=== PATIENT | female | born 1965 | race Caucasian/White ===

== ENCOUNTER 2019-02-25 10:26 | Day surgery (SDC) | payer MEDICAID ==
[~2019-02-25] VITALS: Ht 172.7 cm; Wt 64.5 kg
[2019-02-25 10:48] VITALS: BP 106/67
[2019-02-25] MEDS ORDERED: nitroGLYCERIN 0.4mg SUBLingual tab SL PRN (11:00)
[2019-02-25] MEDS ORDERED: normal saline 1,000 ML IV SCH (11:05)
[2019-02-25] MEDS ORDERED: LORazepam 0.5 MG tablet PO PRN (11:05)
[2019-02-25] MEDS ORDERED: diphenhydrAMINE 25mg capsule PO PRN (11:05)
[2019-02-25] MEDS ORDERED: ALBU18HF2 INH (11:26)
[2019-02-25] MEDS ORDERED: ASPI-611 PO (11:26)
[2019-02-25] MEDS ORDERED: ATRNS (11:26)
[2019-02-25] MEDS ORDERED: BUDE10.2 INH (11:26)
[2019-02-25] MEDS ORDERED: iohexol 350MG/ML 100ml bottle IV ONE (11:57)
[2019-02-25] MEDS ORDERED: midazolam 2 mg/2 ml injection ONE ×2 (11:57→13:00)
[2019-02-25] MEDS ORDERED: fentaNYL/PF 50MCG/1 ML 2ML syringe ONE ×2 (11:57→13:08)
[2019-02-25] MEDS ORDERED: LIDOcaine 1% (10mg/ml)w/preservative injection 20ml MDV ONE (11:57)
[2019-02-25] MEDS ORDERED: iohexol 350 MG/ML 50ML vial IV ONE (11:57)
[2019-02-25] MEDS ORDERED: proCHLORperazine 10 MG/2 ml inj ONE (13:05)
[2019-02-25 13:23] VITALS: BP 116/67
[2019-02-25 13:30] VITALS: BP 114/74
[2019-02-25 13:45] VITALS: BP 133/76
== END 2019-02-25 14:00 | disposition home or self-care (01) ==
LOC: SSTAY O 10:26
PROVIDERS: ATTEND Internal Medicine Cardiovascular Disease
DX: R94.39 Abnormal result of other cardiovascular function study (principal); Z86.19 Personal history of other infectious and parasitic diseases; Z90.710 Acquired absence of both cervix and uterus
CPT/HCPCS: 93451; A6257; J0780; J1644; J2001; J2250; J3010; J7030; Q0163; Q9967; 99152; A4620; C1769

== ENCOUNTER 2019-03-12 10:59 | Day surgery (SDC) | payer MEDICAID ==
[2019-03-09 15:54] LABS: BASOPHILS % (AUTO) 0.5 % (0-1); EOSINOPHILS # (AUTO) 0.1 X10'3 (0-0.9); EOSINOPHILS % (AUTO) 1.2 % (0-6); LYMPHOCYTES # (AUTO) 2.2 X10'3 (1.1-4.8); LYMPHOCYTES % (AUTO) 26.1 % (21-51); MEAN CORPUSCULAR HEMOGLOBIN 30.2 PG (27.0-31.0); MEAN CORPUSCULAR VOLUME 88.7 FL (78-98); MEAN PLATELET VOLUME 9.2 FL (7.4-10.4); MONOCYTES # (AUTO) 0.5 X10'3 (0-0.9); MONOCYTES % (AUTO) 5.4 % (2-12); NEUTROPHILS # (AUTO) 5.7 X10'3 (1.8-7.7); NEUTROPHILS % (AUTO) 66.8 % (42-75); PRE OP HEMATOCRIT 46.4 % (35.0-45.0); PRE OP HEMOGLOBIN 15.8 g/dL (12.0-16.0); PRE OP PLATELET COUNT 214 X10'3 (140-440); RED BLOOD COUNT 5.23 X10'6 (4.20-5.60); RED CELL DISTRIBUTION WIDTH 13.2 % (11.5-14.5)
[2019-03-09 16:05] LABS: ALBUMIN 3.9 G/DL (3.4-5.0); ALBUMIN/GLOBULIN RATIO 1.3 (1.1-1.5); ALKALINE PHOSPHATASE 98 IU/L (46-116); BLOOD UREA NITROGEN 12 MG/DL (7-18); BUN/CREATININE RATIO 15.6 (6.6-38.0); CALCIUM 9.7 MG/DL (8.5-10.1); CHLORIDE 105 MMOL/L (99-107); CREATININE 0.77 MG/DL (0.40-0.90); PRE OP ALT 28 U/L (30-65); PRE OP ANION GAP 8 (8-16); PRE OP AST 14 U/L (10-37); PRE OP BILIRUB, TOTAL 0.4 MG/DL (0.0-1.0); PRE OP SODIUM 142 MMOL/L (135-145); TOTAL CARBON DIOXIDE 28.9 MMOL/L (24-32); eGFR 78 ML/MIN
[2019-03-09 16:08] LABS: PRE OP GLUCOSE 60 MG/DL (70-104)
[2019-03-09 16:09] LABS: PRE OP POTASSIUM 3.3 MMOL/L (3.4-5.1); PRE OP PROTIME 10.4 SECONDS (9.0-12.0)
[~2019-03-12] VITALS: Ht 172.7 cm; Wt 64.4 kg
[~2019-03-12 10:59] MED LIST: ALBU18HF2 INH; ASPI-611 PO; ATRNS; BUDE10.2 INH; LORazepam 0.5 MG tablet PO PRN; diphenhydrAMINE 25mg capsule PO PRN; famotidine 20mg tablet PO ONE; nitroGLYCERIN 0.4mg SUBLingual tab SL PRN; normal saline 1000ml 1,000 ML IV SCH; ringers solution, lacted 1,000 ML IV SCH
[2019-03-12] MEDS ORDERED: LIDOcaine 1% (10mg/ml) 2ml vial ONE (11:34)
[2019-03-12 11:44] VITALS: BP 114/69
[2019-03-12 12:26] LABS: ISTAT ANION GAP 12 (8-12); ISTAT BUN 9 mg/dL (6-19); ISTAT CL 105 mmol/L (99-107); ISTAT CREATININE 0.6 mg/dL (0.6-1.1); ISTAT GLUCOSE 82 mg/dL (70-104); ISTAT HGB 15.3 g/dl (12.0-16.0); ISTAT Hct 45 %PCV (35-48); ISTAT IONIZED CALCIUM 1.23 mmol/L (1.03-1.32); ISTAT K 4.3 mmol/L (3.5-5.1); ISTAT NA 141 mmol/L (135-145); ISTAT TOTAL CO2 24 mmol/L (24-32); ISTAT eGFR > 90 ML/MIN
--- NOTE | 2019-03-12 12:45 | NUR ---
Dr. Dupree cancelled pts procedure today. Pt became extremely emotional. Pt and daughter started cussing and raising their voices. Pt crying stating "this is not ok, this already happened once before, I am really sick. you don't know what its like to feel like you are going to pass out when you walk across the room." Pts daughter yelling "If something happens to my Mom and she ends up not being ok from point a to point b you are all going to be sorry." I called [facility] from pt experience prior to pt becoming upset. Once [facility] arrived to pt room pt was already cussing and crying and immediately started shaking her finger and pointing at Ginas face. Once we realized pt was inconsolable and was only becoming more upset we politely apologized , I removed her IV and she got dressed. Pt declined a wheelchair ride to her car several times and ended up walking out quickly. Pt was discharged, accompanied by her daughter with all of her personal belongings.
== END 2019-03-12 12:45 | disposition home or self-care (01) ==
LOC: PAS 10:59
PROVIDERS: ATTEND Internal Medicine Cardiovascular Disease
DX: R94.30 Abnormal result of cardiovascular function study, unspecified (principal); Z53.8 Procedure and treatment not carried out for other reasons; F41.9 Anxiety disorder, unspecified; Z90.710 Acquired absence of both cervix and uterus; J45.909 Unspecified asthma, uncomplicated
CPT/HCPCS: 36415; 80047; 80053; 85025; 85610; 85730; J3490; J7030; J7120